=== PATIENT | female | born 1950 | race Two or more races ===

== ENCOUNTER 2019-04-16 05:55 | Day surgery (SDC) | payer OTHER ==
[~2019-04-16 05:55] MED LIST: LEVOTHYROXINE25 MCG PO; ZOCOR20 MG PO
== END 2019-04-16 12:20 | disposition home or self-care (01) ==
LOC: CIR.AMB 05:55
DX: H71.01 Cholesteatoma of attic, right ear (principal); H90.11 Conductive hearing loss, unilateral, right ear, with unrestricted hearing on the contralateral side